=== PATIENT | female | born 1960 | race Caucasian/White ===

== ENCOUNTER 2018-08-14 09:19 | Outpatient (CLI) | payer OTHER | END 2018-08-14 09:36 | disposition home or self-care (01) | LOC: LAB 09:19 | DX: Z76.89 Persons encountering health services in other specified circumstances (principal); D64.89 Other specified anemias; D68.8 Other specified coagulation defects; N39.0 Urinary tract infection, site not specified; E55.9 Vitamin D deficiency, unspecified; E11.9 Type 2 diabetes mellitus without complications; E83.42 Hypomagnesemia; E88.89 Other specified metabolic disorders; A49.02 Methicillin resistant Staphylococcus aureus infection, unspecified site ==

== ENCOUNTER 2018-08-18 11:01 | Outpatient (CLI) | payer OTHER | END 2018-08-18 11:09 | disposition home or self-care (01) | LOC: EKG 11:01 | DX: I49.8 Other specified cardiac arrhythmias (principal) ==